=== PATIENT | male | born 1970 | race Caucasian/White ===

== ENCOUNTER 2016-03-16 08:36 | Day surgery (SDC) | payer BC ==
[~2016-03-16] VITALS: Ht 180.3 cm; Wt 76.0 kg
[~2016-03-16 08:36] MED LIST: LACTATED RINGERS 1,000 ML IV SCH; SODIUM CHLORIDE FLUSH 3 ML SYR IV PRN
[2016-03-16 08:44] VITALS: BP 132/82
[2016-03-16] MEDS ORDERED: LIDOCAINE 4% TOPICAL 4.5 ML SYR ONE (08:47)
[2016-03-16] MEDS ORDERED: SIMETHICONE 40 MG/0.6 ML (MYLICON DROPS) ORAL SYRINGE ONE (08:47)
[2016-03-16] MEDS ORDERED: ALFENTANIL 500 MCG/ML (ALFENTA) 5 ML AMP IV ONE (09:10)
[2016-03-16] MEDS ORDERED: PROPOFOL 20 ML IV ONE ×2 (09:10)
[2016-03-16] MEDS ORDERED: MIDAZOLAM 2 MG/2 ML (VERSED) VIAL ONE (09:10)
[2016-03-16 10:12] VITALS: BP 132/74
[2016-03-16 10:30] VITALS: BP 121/77
== END 2016-03-16 10:45 | disposition home or self-care (01) ==
LOC: ASC 08:36
PROVIDERS: ATTEND Surgery
DX: D64.9 Anemia, unspecified (principal); K29.50 Unspecified chronic gastritis without bleeding; K29.80 Duodenitis without bleeding; K20.9 Esophagitis, unspecified
CPT/HCPCS: 43239; 45378; J2250; J7120

== ENCOUNTER → 2016-03-24 | Outpatient (CLI) | payer BC | LOC: RAD 09:58 | PROVIDERS: ATTEND Surgery | DX: D64.9 Anemia, unspecified (principal) | CPT/HCPCS: 74250 ==

== ENCOUNTER → 2016-05-03 | Outpatient (CLI) | payer BC | LOC: RAD 08:58 | PROVIDERS: ATTEND Surgery | DX: R93.3 Abnormal findings on diagnostic imaging of other parts of digestive tract (principal) | CPT/HCPCS: 74178; Q9967 ==